=== PATIENT | female | born 1985 | race Caucasian/White ===

== ENCOUNTER → 2016-04-11 | Outpatient (CLI) | payer OTHER ==
--- NOTE | 2016-04-11 08:19 | US ---
Bilateral Inguinal Ultrasound History: Left groin pain, possible hernias, 36 weeks . Comparison: None available. Findings: No hernia is identified. Limited images of the inguinal canal are normal. Valsalva is limit ed due to late stage of . Impression: No hernia identified.
== END ==
LOC: FIMAGING 07:37
PROVIDERS: ATTEND Surgery
DX: R10.31 Right lower quadrant pain (principal); R10.32 Left lower quadrant pain; Z33.1 Pregnant state, incidental

== ENCOUNTER 2016-05-09 05:42 | Inpatient (IN) | payer OTHER ==
--- NOTE | 2016-04-24 12:17 | GHP ---
[f rep st] PREOP HISTORY AND PHYSICAL Amended report PLANNED PROCEDURE: Repeat low transverse with bilateral salpingectomy. INDICATIONS: Patient is a 30-year-old, 3, para 1-0-1-1- who will be 39 weeks gestation who has a history of a previous low transverse section for arrest of descent. The patient is declining trial of labor and would like to have a repeat section. Her family status is complete and she would also like to have a bilateral salpingectomy. The patient does have a known inguinal hernia and possible bilateral inguinal hernias, which will possibly be assessed and addressed intraoperatively by Dr. Carmen Huff. The risks and benefits of the procedure have been extensively reviewed with the patient and the patient has been properly consented. PAST MEDICAL HISTORY: History of SVTs, had a negative cardiology evaluation. History of a heart murmur, negative cardiology evaluation. MEDICATIONS: 1. vitamins. 2. Iron. PAST SURGICAL HISTORY: section, tonsillectomy. ALLERGIES: Adhesive tape. SOCIAL HISTORY: Patient is . She is a med/surg nurse. She denies tobacco, alcohol, or drug use. FAMILY MEDICAL HISTORY: Noncontributory. HEALTHCARE MANAGER HISTORY: Menarche age 12, periods every 28 days, lasting 5 days. She is a 3, para 1-0-1-1. In 08/2013 she had a primary low transverse section for intolerance of labor and arrest of dilation and descent. The baby was OP and asynclitic. In 2015 she had a spontaneous at 6 weeks. Current has been uncomplicated. The patient denies any history of any abnormal Pap smears or sexually transmitted diseases. PHYSICAL EXAM: VITAL SIGNS: Stable. GENERAL APPEARANCE: She is alert and oriented x3. CARDIAC: Her heart rate is irregularly-irregular. LUNGS: Clear to auscultation bilaterally. ABDOMEN: Gravid, nondistended, nontender. EXTREMITIES: Reveal no calf tenderness or edema. PELVIC: Cervical exam is deferred. is in the vertex presentation. LABORATORY DATA: labs: Blood type O negative, antibody screen negative. Rubella immune. GBS negative. HBsAg negative, HIV negative. Her verify screen was negative. Her 50 g glucose was 103. ASSESSMENT AND PLAN: A 30-year-old, 3, para 1-0-1-1, who will be 39 weeks gestation with a history of previous low transverse section. She requests repeat low transverse section with bilateral salpingectomy. Risks and benefits of the procedure have been extensively reviewed with the patient. The patient has been properly consented. /[id number]/MODL Add acc#, 05/09/16, elizabeth DIANA
[2016-05-09 06:30] LABS: % IMMATURE GRANULYOCYTES 0.7 % (0.0-1.1); ABSOLUTE IMMATURE GRANULOCYTES 0.08 10^3/uL (0.00-0.10); ADD DIFF? NO; ADD MORPH? NO; ADD SCAN? NO; ATYPICAL LYMPHOCYTE FLAG 0 (0-99); FRAGMENT RBC FLAG 0 (0-99); HEMATOCRIT 38.1 % (38.0-47.0); HEMOGLOBIN 13.2 g/dL (12.6-16.3); LEFT SHIFT FLG 0 (0-99); LIPEMIA HEMOLYSIS FLAG 90 (0-99); MEAN CELL HEMOGLOBIN 32.8 pg (27.9-34.1); MEAN CELL HEMOGLOBIN CONCENTR. 34.6 g/dL (32.4-36.7); MEAN CELL VOLUME 94.5 fL (81.5-99.8); MEAN PLATELET VOLUME 10.5 fL (8.7-11.7); PLATELET CLUMPS FLAG 0 (0-99); PLATELET COUNT 205 10^3/uL (150-400); RED BLOOD CELL COUNT 4.03 10^6/uL (4.18-5.33); RED CELL DISTRIBUTION WIDTH 12.7 % (11.5-15.2)
[2016-05-09] MEDS ORDERED: AMMONIA AROMATIC 1 EACH AMP IH ONE (07:22)
[2016-05-09] MEDS ORDERED: LIDOCAINE 1% 30 ML SDV ONE (07:22)
[2016-05-09] MEDS ORDERED: MISOPROSTOL 200 MCG TAB ONE (07:23)
[2016-05-09] MEDS ORDERED: CITRIC ACID/SODIUM CITRATE 30 ML UDCUP ONE (07:35)
[2016-05-09] MEDS ORDERED: CEFAZOLIN 2 GM/DEXTROSE/100 ML BAG IV ONE (07:35)
[2016-05-09] MEDS ORDERED: morphINE PF 5 MG/10 ML INJ ONE (07:46)
[2016-05-09] MEDS ORDERED: CITRIC ACID/SODIUM CITRATE 30 ML UDCUP PO ONE (08:00)
[2016-05-09] MEDS ORDERED: LR 1,000 ML IV ONE (08:00)
[2016-05-09] MEDS ORDERED: ceFAZolin 2 GM/DEXTROSE 100 ML IV ONE (08:00)
[2016-05-09] MEDS ORDERED: ONDANSETRON 4 MG/2 ML VIAL ONE (08:01)
[2016-05-09] MEDS ORDERED: METOCLOPRAMIDE 10 MG/2 ML VIAL ONE (08:01)
[2016-05-09] MEDS ORDERED: OXYTOCIN 100 UNITS/10 ML VIAL ONE (08:54)
[2016-05-09] MEDS ORDERED: ONDANSETRON 4 MG/2 ML VIAL IVP PRN (09:02)
[2016-05-09] MEDS ORDERED: NALOXONE HCL 0.4 MG/ML INJ IVP PRN (09:02)
[2016-05-09] MEDS ORDERED: fentaNYL 100 MCG/2 ML INJ IVP PRN (09:02)
[2016-05-09] MEDS ORDERED: HYDROmorphONE/DILAUDID 1 MG/ML SYR IVP PRN (09:02)
--- NOTE | 2016-05-09 09:03 | POSTANESTH ---
Post Anesthetic Evaluation Cardiovascular Status: Normal, Stable Respiratory Status: Normal, Stable Level of Consciousness/Mental Status: Can Participate in Eval, Alert and Oriented Pain Control: Adequate, Prn Tx Ordered Nausea/Vomiting Control: Adequate, Prn Tx Ordered Complications Possibly Related to Anesthesia: None Noted
--- NOTE | 2016-05-09 09:05 | OBPROC ---
- Delivery Pre-op Diagnoses: IUP 39 weeks, hx prior section, SROM, declines trial of labor, family status complete Post-op Diagnoses: same plus breech Procedure: Repeat, Low Transverse, Tubal Ligation Surgeon: Alize Medeiros Recycling Specialist: Erika Lee Anesthesiologist: Jacky Varma Anesthesia: Spinal Complications: None EBL: 600 - Info A Delivery Date: 05/09/16 Delivery Time: 08:20 Sex of Infant: Male Score (1 Min): 8 Score (5 Min): 9
[2016-05-09] MEDS ORDERED: LACTULOSE 20 GM/30 ML UDCUP PO PRN (09:06)
[2016-05-09] MEDS ORDERED: ACETAMINOPHEN 325 MG TAB PO PRN (09:06)
[2016-05-09] MEDS ORDERED: POLYETHYLENE GLYCOL 3350 17 GM PKT PO PRN (09:06)
[2016-05-09] MEDS ORDERED: BISACODYL 10 MG SUPP PR PRN (09:06)
[2016-05-09] MEDS ORDERED: MAGNESIUM HYDROXIDE 30 ML UDCUP PO PRN (09:06)
[2016-05-09] MEDS ORDERED: KETOROLAC 30 MG/1 ML SDV ONE (10:43)
--- NOTE | 2016-05-09 10:48 | GOP ---
[f rep st] OPERATIVE REPORT DATE OF OPERATION: 05/09/2016 SURGEON: Alize Medeiros DO BUS MATRON: Erika Lee. ANESTHESIA: Spinal with Duramorph. ANESTHESIOLOGIST: Dr. Varma. PREOPERATIVE DIAGNOSIS: 1. Intrauterine at 39-1/7 weeks gestation. 2. History of previous low transverse section. Declines trial of labor. 3. Spontaneous rupture of membranes. 4. Family status complete. POSTOPERATIVE DIAGNOSIS: 1. Intrauterine at 39-1/7 weeks gestation. 2. History of previous low transverse section. Declines trial of labor. 3. Spontaneous rupture of membranes. 4. Family status complete. 5. Baby in mikki breech presentation. PROCEDURE PERFORMED: FINDINGS: 1. Viable male in the mikki breech presentation delivered at 8:20 a.m. Apgars wer e 8 and 9. 2. Intact placenta with 3-vessel cord. 3. Normal ovaries, uterus and tubes. SPECIMENS: Bilateral fallopian tubes. ESTIMATED BLOOD LOSS: 600 cc. INDICATIONS: Patient is a 30-year-old, 3, para 1-0-1-1, who is 39 and 1/7 weeks gestation. She has a history of previous low transverse section for arrest of descent and dilation. The patient declines trial of labor. She is scheduled for a section today. She did have a spontaneous rupture of membranes at 4:30 a.m. and presented to Labor and Delivery for her scheduled C section. We discussed attempting a vaginal after section. Her cervix was examine d, and her cervix was long, closed, and posterior and nothing was appreciated to be in the pelvis. Decision was made to proceed with a repeat low transverse section. DESCRIPTION OF PROCEDURE: Consent was obtained. Patient was transported to the operating room. Gurvinder lawson was then seated on the operating room table where spinal anesthesia was obtained with ease. She w as given 2 g of Ancef intravenously and placed in the dorsal supine position with a leftward tilt. A Oneal catheter was then placed. Venodynes were placed on her lower extremities. She was then pre pped and draped in normal sterile fashion. Anesthesia was assessed and found to be adequate. A Pfa nnenstiel skin incision was then made 2 fingerbreadths above the pubic symphysis. The incision was then carried through to the underlying layer of fascia with the Bovie. The fascia was then nicked i n the midline, and the fascial incision was extended laterally. The superior aspect of the fascial incision was then grasped with James's, tented up, and the underlying rectus muscle dissected off b luntly with the Bovie. Attention was then turned to the inferior aspect of the fascial incision, wh ich in a similar fashion, was grasped with James's, tented up, and the underlying rectus muscle dis sected off bluntly with the Bovie. The rectus muscle was then in the midline. The perito neum was identified, tented up, and entered sharply with the Metzenbaum scissors. The incision was extended superiorly and inferiorly with excellent visualization of the bladder. The bladder blade w as inserted. The vesicouterine peritoneum was identified, tented up, and entered sharply with the M etzenbaum scissors. The incision was extended laterally, and a bladder flap was created digitally. The bladder blade was then inserted. The uterus was then incised in low transverse fashion with th e scalpel. The uterine incision was extended laterally. No fluid was noted. The infant's buttocks were noted at time of delivery to be the presenting part. The infant's buttocks were delivered thr ough the incision. The arms were rotated and the head was delivered without difficulty. The cord w as clamped x2 and cut. Cord blood was obtained, and the infant was handed off to awaiting nurse practitioner. Intact placenta with 3-vessel cord was delivered without difficulty. The uteru s was then exteriorized and cleared of all clots and debris. Pitocin was then started. The uterus was then wrapped in a moist laparotomy sponge, and the uterus was then cleared of all clots and debr is. The bladder blade was then reinserted. The hysterotomy was then closed with 0 Vicryl in a runn ing, locked fashion. Hemostasis was assured. Attention was then turned to the patient's fallopian tubes. Ovaries and tubes were unremarkable. The patient confirmed that she does not want to have a ny more children, so a bilateral salpingectomy was performed. The right fallopian tube was then gra sped with a [place] gently tented up, and an avascular area of the mesosalpinx was then identified a nd cauterized to create a hole in the mesosalpinx. The vessels were then clamped and transected and suture ligated with an 0 Vicryl stitch, and the fallopian tube was then removed. The salpingectomy was performed in a similar fashion on the contralateral side. Hemostasis was assured on both sides . The uterus was then returned to the patient's abdomen. The gutters were cleared of all clots and debris. The hysterotomy remained hemostatic. Peritoneum was reapproximated with 3-0 Vicryl in a r unning fashion. Rectus muscles were reapproximated with 2-0 Vicryl in a running fashion. Fascia wa s closed with 0 Vicryl in a running fashion. Subcutaneous tissue was found to be hemostatic. The s ubcuticular tissue was reapproximated with 3-0 Vicryl in a running fashion. The skin was then close d with samira. Sponge, lap, and needle count were correct x2. The patient was transported to [facility] very room in stable condition. /[id number]/MODL
[2016-05-09] MEDS: KETOROLAC 30 MG/1 ML SDV IVP SCH ×3 (10:51→23:59)
--- NOTE | 2016-05-09 19:36 | SOAPPROG ---
SOAP Progress Note Assessment/Plan: Assessment: pod# 0 s/p RLTCS with bilateral salpingectomy breast feeding Plan: routine post operative and post care 05/09/16 19:34 Subjective: patient is doing well. pain is well controlled. tolerating clear liquids. breast feeding is going well. denies headache and changes in vision. Objective: Vital Signs Temp Pulse Resp BP Pulse Ox 36.1 C 76 16 100/52 L 98 05/09/16 13:45 05/09/16 13:45 05/09/16 13:45 05/09/16 13:45 05/09/16 13:45 Laboratory Results 05/09/16 06:05 05/08/16 05/09/16 05/10/16 05:59 05:59 05:59 Intake Total 2700 Output Total 825 Balance 1875 Physical Exam - Physical Exam General Appearance: WD/WN, alert, no apparent distress Respiratory: chest non-tender, lungs clear, normal breath sounds Cardiac/Chest: normal peripheral pulses, regular rate, rhythm Abdomen: normal bowel sounds, non-tender, soft Skin: normal color, warm/dry Extremities: normal range of motion, non-tender, normal inspection, normal capillary refill Neuro/Psych: no motor/sensory deficits, alert, normal mood/affect, oriented x 3 ICD10 Worksheet Patient Problems: Problems Problem Status Onset Arrest of dilation, delivered, current hospitalization Acute delivery delivered Acute Normal labor Acute
[2016-05-09] MEDS: SENNOSIDES/DOCUSATE SODIUM TAB PO SCH (23:59)
[2016-05-10] MEDS: KETOROLAC 30 MG/1 ML SDV IVP SCH (06:33)
[2016-05-10] MEDS: SENNOSIDES/DOCUSATE SODIUM TAB PO SCH (09:33)
--- NOTE | 2016-05-10 12:30 | SOAPPROG ---
SOAP Progress Note Assessment/Plan: Assessment: pod# 1 s/p RLTCS with bilateral salpingectomy breast feeding anemia Plan: routine post operative and post care iron 05/10/16 12:28 Subjective: patient is doing great. pain is well controlled. normal lochia. passing gas. voiding without difficulty. breast feeding is going well. normal lochia. denies headache and changes in vision. Objective: Vital Signs Temp Pulse Resp BP Pulse Ox 36.6 C 95 16 111/64 96 05/10/16 08:30 05/10/16 08:30 05/10/16 08:30 05/10/16 08:30 05/10/16 08:30 Laboratory Results 05/10/16 04:30 05/09/16 05/10/16 05/11/16 05:59 05:59 05:59 Intake Total 4700 Output Total 3125 2300 Balance 1575 -2300 Physical Exam - Physical Exam General Appearance: WD/WN, alert, no apparent distress Respiratory: chest non-tender, lungs clear, normal breath sounds Cardiac/Chest: normal peripheral pulses, regular rate, rhythm Abdomen: normal bowel sounds, non-tender, soft Skin: normal color, warm/dry, other (incision covered) Extremities: normal range of motion, non-tender, normal inspection, normal capillary refill Neuro/Psych: no motor/sensory deficits, alert, normal mood/affect, oriented x 3 ICD10 Worksheet Patient Problems: Problems Problem Status Onset Arrest of dilation, delivered, current hospitalization Acute delivery delivered Acute Normal labor Acute
--- NOTE | 2016-05-10 13:02 | POSTANESTH ---
Post Anesthetic Evaluation Cardiovascular Status: Normal, Stable (Duramorph Spinal Post-Op - Pt sitting outside enjoying lunch. No Motor/sensory deficits, No AGUILERA, no complaints.)
[2016-05-10] MEDS: IBUPROFEN 600 MG TAB PO PRN ×2 (13:06→19:08)
[2016-05-10] MEDS: IRON POLYSAC/IRON HEME 28 MG TAB PO SCH (13:31)
[2016-05-10] MEDS: HYDROCODONE/APAP 5/325 TAB PO PRN (18:23)
[2016-05-11] MEDS: IBUPROFEN 600 MG TAB PO PRN ×3 (01:04→12:36)
[2016-05-11] MEDS: SENNOSIDES/DOCUSATE SODIUM TAB PO SCH ×2 (01:31→11:01)
[2016-05-11 04:40] VITALS: BP 102/68; PULSE 89; RESP 16; TEMP 98.5; O2SAT 94
--- NOTE | 2016-05-11 09:25 | OBPROG ---
OBG Progress Note Assessment/Plan: Assessment: 30 y/o POD #2 s/p Rpt c section and B salpingectomy Plan: D/c home today with Rx [place], Ibuprofen and Bifera. Pt is allergic to steri- strips so will keep samira in until office apt Saturday. Routine d/c instructions. 05/11/16 09:23 Subjective: Pt is doing well this am. She has min pain controlled with po meds. Ambulating and voiding without difficulty. Working on nursing with sore nipples. Desire to d/c home today. Objective: 05/10/16 04:30 Patient ABO/Rh O NEGATIVE 05/09/16 11:25 Temp Pulse Resp BP Pulse Ox 36.9 C 89 16 102/68 94 05/11/16 01:00 05/11/16 01:00 05/11/16 01:00 05/11/16 01:00 05/11/16 01:00 Uterine Position/Fundal Height: Umbilicus -3 Uterine Tone: Firm - Physical Exam General Appearance: WD/WN, alert, no apparent distress Neck: non-tender, full range of motion, supple Respiratory: chest non-tender, lungs clear, normal breath sounds Cardiac/Chest: regular rate, rhythm Abdomen: normal bowel sounds, incision (c/d/i samira in place) Extremities: swelling (no), Dana's sign (neg) ICD10 Worksheet Patient Problems: Problems Problem Status Onset Arrest of dilation, delivered, current hospitalization Acute delivery delivered Acute Normal labor Acute
[2016-05-11] MEDS: IRON POLYSAC/IRON HEME 28 MG TAB PO SCH (10:08)
[2016-05-11] MEDS: HYDROCODONE/APAP 5/325 TAB PO PRN (12:36)
== END 2016-05-11 13:00 | disposition home or self-care (01) | DRG 766 ==
LOC: FLD 05:42 → FOB 10:44
PROVIDERS: ADMIT Obstetrics & Gynecology; ATTEND Obstetrics & Gynecology
PROC: 10D00Z1 Extraction of Products of Conception, Low, Open Approach (ICD-10-PCS; principal; 2016-05-09)
PROC: 0UT70ZZ Resection of Bilateral Fallopian Tubes, Open Approach (ICD-10-PCS; principal; 2016-05-09)
DX: O34.211 Maternal care for low transverse scar from previous cesarean delivery (principal); O32.1XX0 Maternal care for breech presentation, not applicable or unspecified; Z30.2 Encounter for sterilization; Z3A.39 39 weeks gestation of pregnancy; Z37.0 Single live birth
CPT/HCPCS: G0463; J0690; J1885; J2274; J2405; J2590; J2765